=== PATIENT | male | born 2000 | race Two or more races ===

== ENCOUNTER 2022-07-08 18:57 | Emergency (ER) | payer MEDICAID ==
[~2022-07-08] VITALS: Ht 177.8 cm; Wt 168.8 kg
[2022-07-08 19:33] LABS: Hematocrit 47.9 % (41.0-53.0); Hemoglobin 15.7 g/dL (13.5-17.5); Mean Corpuscular Hgb Conc. 32.8 g/dL (32.0-36.0); Mean Corpuscular Volume 82.2 fL (80.0-100.0); Red Blood Cells 5.83 10^6/uL (4.5-5.90); Red Cell Distribution Width 12.4 % (11.8-14.3); White Blood Cell 21.4 10^3/uL (4.4-10.8)
[2022-07-08 19:47] LABS: Band Neutrophils % (manual) 0; Basophils % (manual) 0 (0.0-2.0); Blast Cells 0; Metamyelocytes % 0; Myelocytes % 0; Promyelocytes % 0; Reactive Lymphocytes 0
[2022-07-08 19:57] LABS: Albumin 5.1 g/dL (3.4-5.0); Calcium 9.8 mg/dL (8.5-10.1); Potassium 3.9 mmol/L (3.5-5.1)
[2022-07-08 20:00] LABS: BUN/Creatinine Ratio 13.4; Bilirubin, Total 0.5 mg/dL (0.2-1.0); Total Protein 8.2 g/dL (6.4-8.2)
[2022-07-08 20:08] LABS: Urine Bacteria NONE SEEN /hpf (None Seen); Urine Blood Negative /uL (Negative); Urine Hyaline Cast FEW /lpf (0 - 2); Urine Mucus FEW (None Seen); Urine Specific Gravity 1.013 (1.001-1.035); Urine WBC 1 /hpf (0 - 3)
[2022-07-08 20:11] LABS: Eosinophils % (manual) 1 (0-7); Lymphocytes % (manual) 13 (10.0-50.0); Monocytes % (manual) 8 (0-12)
[2022-07-08 20:14] LABS: Amphetamine Screen, Urine NEGATIVE (NEGATIVE); Cannabinoid Screen, Urine NEGATIVE (NEGATIVE)
[2022-07-08 20:24] LABS: Alcohol, Urine < 3.0 mg/dL (0-10); Barbiturate Scree,Urine NEGATIVE (NEGATIVE); Benzodiazephine Screen, Urine NEGATIVE (NEGATIVE); Cocaine Screen, Urine POSITIVE (NEGATIVE); Opiate Scree,Urine NEGATIVE (NEGATIVE); Phencyclidine Screen, Urine NEGATIVE (NEGATIVE)
[2022-07-08 23:10] VITALS: BP 152/97
== END 2022-07-08 23:15 | disposition home or self-care (01) ==
LOC: ER 18:57
DX: F14.10 Cocaine abuse, uncomplicated (principal); R07.89 Other chest pain; Z79.899 Other long term (current) drug therapy
CPT/HCPCS: 36415; 71045; 71046; 80053; 80307; 81001; 84484; 85007; 85027; 93005